=== PATIENT | female | born 1935 | race Caucasian/White ===

== ENCOUNTER → 2017-10-16 | Outpatient (CLI) | payer MEDICARE, BC ==
[~2017-10-16] MED LIST: ACE3 PO; AMO250 PO; ASPI-715 PO; ATR10 PO; BACDS PO; BEN10 PO; BIMA2.5D5 OP; BRI10OD OP; CALC-475 PO; CHOL200038 PO; CPAP; DORZ10DR21 OP; EST3 PO; FLU IM; GLUC500T13 PO; HCTZ25 PO; HYDR-2966 PO; LEV125 PO; LEVO50TA80 PO; LUTE20CA11 PO; MAXI VISION; MECL-81 PO; METH1TAB58 PO; MIRA50TA PO; MIRT-22 PO; MULT-1 PO; OMEG-11 PO; ONDA8TAB98 PO; PHENA200 PO; POTA10CA61 PO; SIMV5TAB60 PO; VIT1CAPS38 PO; VITA1CAP46 PO; XALATAN
[2017-10-16 09:16] LABS: PLATELET COUNT, AUTOMATED 144 K/uL (150-450)
== END ==
LOC: LAB 08:28
PROVIDERS: ATTEND Nurse Practitioner Family
DX: E78.5 Hyperlipidemia, unspecified (principal); E03.9 Hypothyroidism, unspecified; I10 Essential (primary) hypertension
CPT/HCPCS: 36415; 82040; 82247; 82310; 82374; 82435; 82465; 82565; 82947; 83718; 84075; 84132; 84155; 84295; 84443; 84450; 84460; 84478; 84520; 85025

== ENCOUNTER → 2018-03-02 | Outpatient (CLI) | payer MEDICARE, BC ==
[~2018-03-02] MED LIST changes: -DORZ10DR21 OP; +DORZ10DR24 OP
[2018-03-02 08:40] LABS: PLATELET COUNT, AUTOMATED 162 K/uL (150-450)
== END ==
LOC: LAB 08:17
PROVIDERS: ATTEND Nurse Practitioner Family
DX: E03.9 Hypothyroidism, unspecified (principal); E78.5 Hyperlipidemia, unspecified; I10 Essential (primary) hypertension
CPT/HCPCS: 36415; 82040; 82247; 82310; 82374; 82435; 82465; 82565; 82947; 83718; 84075; 84132; 84155; 84295; 84443; 84450; 84460; 84478; 84520; 85025

== ENCOUNTER 2018-05-30 13:45 | Outpatient (RCR) | payer MEDICARE, BC ==
--- NOTE | 2018-03-21 18:41 | PT INITIAL EVALUATION ---
MEDICAL DIAGNOSIS: Age-related weakness TREATMENT DIAGNOSIS: R26.89 Imbalance, R53.1 Weakness, R 53.81 Physical Deconditioning DATE OF ONSET: 12/15/17 SUBJECTIVE: Rosy Lee presents to PT for weakness and worse imbalance over the last three months with being sedentary. She relates she is limited with ambulation, not completing a shopping trip, going out to eat due to weakness. She denies falls in the last three months. She'd like to be able to return to shopping a full shopping trip ([employer]), community ambulation, be more steady in ambulation and transfers. She also reports R spinning vertigo with laying on her R side in bed. She reports mild short term memory deficits. REHAB PROBLEM LIST: Decreased ROM Decreased Strength Decreased Endurance Decreased Balance Decreased Function Decreased Mobility Decreased Gait PREVIOUS MEDICAL HISTORY: L TKA, glaucoma, hypothyroidism, vertigo. OCCUPATION: Retired teacher OBJECTIVE: Posture: Heels 8" apart, valgus knees, upright trunk. ROM: Ankle PROM DF 0 deg. B. Strength: LE's 4-/5 except calves 2+/5. Special Tests: Positive R Hallpike for upbeating torsional nystagmus. Mobility: Sit to career services coordinator 1-3 attempts, pushes legs against chair or uses hands, 19" seat height, 1 attempt, no UE's 21" seat height. Gait: Tinetti Gait and Balance 14, a high fall risk. Rosy ambulates with a cane, fleet not passing each other, not clearing the floor, flat foot gait pattern. Gait speed is 1.7 feet per second, a household ambulator speed, O2 on room air after 170 feet is 86%, HR 87. She turns slowly with discordant steps and balance disturbance. Balance: Sy Balance Assessment 39, a high fall risk. Rosy's able to WS L and R but in turning is fearful and has balance disturbance. Double limb support only. Functional reach 5". ASSESSMENT: Rosy Lee presents with deconditioning, weakness, low O2 sats, high fall risk and altered balance from a 3 month sedentary life style. She's a good candidate to reduce fall risk, strengthen and condition for safer, farther community ambulation. Short Term Goals One month: Rosy shops in a small store with grocery cart, not electric cart. Two months: Rosy demonstrates stepping reflex with balance challenge, community ambulator with cane. Three months: Genia demonstrates corrective balance reactions on uneven and firm surfaces, low fall risk with community ambulation with cane. Patient's Goals Reduce fall risk, shop without an electric cart, have stronger legs for ambulation. PLAN: Patient to be seen for Strengthening/condition, Range of Motion, Stretching, Neuromuscular Re-ed, Gait Trg/Balance Trg, Home Exercise Program 2x/Week for 3 months Thank you for this referral. If you have any questions, comments, or concerns about this report or plan, please contact me at . [facility]
--- NOTE | 2018-04-25 17:09 | PT PLAN OF CARE ---
Physician: Emma Tabor AUTOMATIC CAR WASH ATTENDANT Patient is being seen: 2x/week Therapist: Jeny Bell PT Medical Diagnosis: Age-related weakness Treatment Diagnosis: R26.89 Imbalance, R53.1 Weakness, R 53.81 Physical Deconditioning Date of Onset: 12/15/17 Date of Initial Evaluation: 03/21/18 Date patient was last seen: 04/25/18 Number of treatments: 10 Number of cancellations/No shows: 0 INTERVENTIONS: Strengthening/condition Range of Motion Stretching Neuromuscular Re-ed Gait Trg/Balance Trg Home Exercise Program GOALS: One month: Rosy shops in a small store with grocery cart, not electric cart. met Two months: Rosy demonstrates stepping reflex with balance challenge (not met), community ambulator with cane (met). Three months: Genia demonstrates corrective balance reactions on uneven and firm surfaces (not met), low fall risk with community ambulation with cane (progressing). PATIENT'S GOAL: Reduce fall risk (progressing), shop without an electric cart (met), have stronger legs for ambulation (not met). Patient Compliance: Excellent Prognosis: Good Reasons for continuing therapy: S: Rosy denies falls since starting therapy. She reports she lacks motivation to get out and about. Posture: Heels 8" apart, valgus knees, upright trunk. ROM: Ankle PROM DF 10 deg. B. Strength: LE's still 4-/5 except calves 2+/5 (we've been working more balance). Gait/Balance: Tinetti Gait and Balance improved to 22 (was 14), a fall risk. Sy Balance Assessment improved from 39 to 40, a 29% impairment. Genia ambulates 3 minutes of the 6 minutes walk test with cane, O2 sat on room air 87 to 90% Mobility: Sit to machinist tool and die 1attempt, without leg against bed or hands. A/P: Rosy While is reducing fall risk, improving gait, still needs balance and strengthening to reduce fall risk further. if you agree, we'll continue per evaluation plan at 2x/week through May. Thank you. MARIBETH
[~2018-05-30 13:45] MED LIST changes: +AFLI2VIA IO; +BENA5TAB33 PO; +DOCU-416 PO; +LEVO50TA86 PO; +NEPA1.7D OP; +PRED5DRO3 OD; +SIMV10TA98 PO; +SOLI5TAB PO
--- NOTE | 2018-06-04 14:25 | PT PLAN OF CARE ---
Physician: Emma Tabor ENDLESS BED DRUM SANDER Patient is being seen: 2x/week Therapist: Jeny Bell, PT Medical Diagnosis: Age-related weakness Treatment Diagnosis: R26.89 Imbalance, R53.1 Weakness, R 53.81 Physical Deconditioning Date of Onset: 12/15/17 Date of Initial Evaluation: 03/21/18 Date patient was last seen: 05/30/18 Number of treatments: 18 Number of cancellations/No shows: 1 INTERVENTIONS: Strengthening/condition, Neuromuscular Re-ed, Gait Trg/Balance Trg, Home Exercise Program GOALS: One month: Rosy shops in a small store with grocery cart, not electric cart. met Two months: Rosy demonstrates stepping reflex with balance challenge (not met), community ambulator with cane (met). Three months: Genia demonstrates corrective balance reactions on uneven and firm surfaces (not met), low fall risk with community ambulation with cane (not met). PATIENT'S GOAL: Reduce fall risk (partially met), shop without an electric cart (met), have stronger legs for ambulation (partially met). Patient Compliance: Good Prognosis: Good Reasons for discontinuing therapy: S: Rosy cancelled today and requested discharge from PT. She's been flustered with her balance over the last few visits and her lack of motivation. Posture: Heels 8" apart, valgus knees, upright trunk. Mobility: Sit to office machine servicer 1 attempt, no hands. Balance: Tinetti Gait and Balance was 22, a fall risk at the last POC of 04/25/18. A/P: Rosy While has discharged herself from PT. I feel she has improved her balance. If she would like to return to PT, I would be happy to work with her. I'll close her PT case. Thank you. MARIBETH
== END 2018-06-03 18:00 | disposition home or self-care (01) ==
LOC: PT 13:45
PROVIDERS: ATTEND Nurse Practitioner Family
DX: R53.1 Weakness (principal); R53.81 Other malaise; R26.89 Other abnormalities of gait and mobility; R42 Dizziness and giddiness; R41.3 Other amnesia; E03.9 Hypothyroidism, unspecified; Z96.652 Presence of left artificial knee joint
CPT/HCPCS: 97162

== ENCOUNTER → 2018-06-21 | Outpatient (CLI) | payer MEDICARE, BC ==
[~2018-06-21] MED LIST changes: -BIMA2.5D5 OP; +BIMA2.5D5 OU; +LEVO75TA73 PO; +NEPA1.7D OD; -NEPA1.7D OP; +OXYGENHOME INH; +RANI-318 PO
[2018-06-21 13:51] LABS: PLATELET COUNT, AUTOMATED 164 K/uL (150-450)
== END ==
LOC: LAB 13:10
PROVIDERS: ATTEND Family Medicine
DX: R41.0 Disorientation, unspecified (principal); R53.83 Other fatigue; E55.9 Vitamin D deficiency, unspecified; R26.89 Other abnormalities of gait and mobility
CPT/HCPCS: 36415; 82306; 82310; 82374; 82435; 82565; 82607; 82947; 84132; 84295; 84443; 84520; 85025

== ENCOUNTER → 2018-06-26 | Outpatient (CLI) | payer MEDICARE, BC ==
--- NOTE | 2018-06-26 11:25 | RADIOLOGY IMAGING REPORT ---
FACILITY: [facility] PATIENT NAME: Rosy Lee : 1935 MR: [id number] V: [id number] EXAM DATE: ORDERING PHYSICIAN: GRADY TEJADA TECHNOLOGIST: Location: [facility] Patient: Rosy Lee : 1935 Visit/Account:[id number] Date of Sevice: 06/26/2018 Study: MRI brain without the use of intravenous contrast Indication: Confusion, fatigue, imbalance, dizziness Comparison study: None Technique: Multiplanar MRI sequences were obtained through the brain without the use of intravenous g adolinium contrast. The examination demonstrates no evidence of acute intracranial hemorrhage. There is no evidence of ex tra-axial collection or hydrocephalus. A diffusion-weighted sequence was performed and demonstrates no evidence of active ischemia. There is no evidence of active infarction. There is moderate atrophy present. There are patchy areas of high T2-weighted signal present within the central white matter. This is most consistent with chronic ischemia. These findings are likely within normal limits of normal for a patient of 83 years of age. The orbits are grossly unremarkable. There is no significant abnormality of the paranasal sinuses present. IMPRESSION: No acute intracranial abnormality identified. There is moderate atrophy noted. There ou r chronic ischemic white matter changes present. Report Dictated By: Darrick Elizalde at 06/26/2018 11:18 AM Report E-Signed By: Darrick Elizalde at 06/26/2018 11:21 AM WSN:[id number]
== END ==
LOC: MRI 00:37
PROVIDERS: ATTEND Family Medicine
DX: G31.9 Degenerative disease of nervous system, unspecified (principal); R41.0 Disorientation, unspecified; R53.83 Other fatigue; R26.89 Other abnormalities of gait and mobility; R42 Dizziness and giddiness
CPT/HCPCS: 70551

== ENCOUNTER → 2018-09-04 | Outpatient (CLI) | payer MEDICARE, BC ==
[~2018-09-04] MED LIST changes: +LEVO25TA61 PO; -SIMV5TAB60 PO; +SIMV5TAB69 PO
== END ==
LOC: ZZSPRING 01:17
PROVIDERS: ATTEND Family Medicine
DX: Z01.89 Encounter for other specified special examinations (principal)
CPT/HCPCS: 36415; 82310; 82374; 82435; 82565; 82947; 84132; 84295; 84443; 84520

== ENCOUNTER → 2018-10-16 | Outpatient (CLI) | payer MEDICARE, BC ==
[~2018-10-16] MED LIST changes: +ACET-1966 PO; +ASPI-757 PO; +CALC1TAB24 PO; +ESCI10TA8 PO; +PEG15DRO5 OP
== END ==
LOC: ZZSPRING 02:03
PROVIDERS: ATTEND Family Medicine
DX: E03.9 Hypothyroidism, unspecified (principal)
CPT/HCPCS: 36415; 84443

== ENCOUNTER 2018-11-01 18:48 | Emergency (ER) | payer MEDICARE, BC ==
--- NOTE | 2018-11-01 18:31 | ER Report ---
History and Physical Time Seen By MD: 18:57 HPI/ROS CHIEF COMPLAINT: Fall HISTORY OF PRESENT ILLNESS: This in the 3-year-old female who presents to the emergency department via EMS for a fall. Patient states that she was using her walker this evening, and walker began to accelerate, she slipped and fell down landing on her left cheek, was unable to get up, was on the floor for 30 minutes to an hour. Patient arrives alert and oriented, interacting well, acting appropriate. She does have a contusion and a small abrasion to the right orbit, she is also complaining of a small amount of pain to her right knee where she states the pain is very mild, no difficulties with flexion or extension. She did have 3 episodes of vomiting prior to arrival. She has no nausea at this time. She is not currently taking anticoagulation. She denies chest pain or shortness of breath. Denies C-spine tenderness. REVIEW OF SYSTEMS: Constitutional: No fever, no chills. Eyes: No discharge. ENT: No sore throat. Cardiovascular: No chest pain, no palpitations. Respiratory: No cough, no shortness of breath. Gastrointestinal: As above. Genitourinary: No hematuria. Musculoskeletal: As above. Skin: As above. Neurological: No headache. Allergies: Coded Allergies: codeine (Unverified Allergy, Intermediate, NAUSEA/VOMITING, 11/01/18) fluoxetine (Unverified Allergy, Intermediate, SHAKING, 11/01/18) SHAKING Iodinated Contrast- Oral and IV Dye (Verified Allergy, Mild, 11/01/18) Uncoded Allergies: NARCOTICS (Allergy, Mild, 03/23/09) Home Meds Active Scripts Levothyroxine Sodium (LEVOTHYROXINE SODIUM) 25 Mcg Tablet, 1 TAB PO QDAY for 90 Days, #90 TAB 4 Refills Prov:GRADY TEJADA MD 10/16/18 Escitalopram Oxalate (ESCITALOPRAM OXALATE) 10 Mg Tablet, 1 TAB PO QDAY for 90 Days, #90 TAB Prov:GRADY TEJADA MD 09/11/18 Reported Medications Fesoterodine Fumarate (TOVIAZ) 4 Mg Tabsr, 4 MG PO QDAY 11/01/18 Dorzolamide HCl/Pf (Dorzolamide 2% Eye Drop) 2 % Drops, 1 DROP OU TID 11/01/18 Calcium Carbonate/Mag Hydrox (ANTACID CHEWABLE TABLET) 1 Each Tab.chew, 2 TAB.CHEW PO Q2H PRN for PRN, TAB.CHEW 09/18/18 Aspirin (ASPIRIN) 325 Mg Tablet, 1 TAB PO ONCE PRN for CHEST PAIN, TAB 09/18/18 Acetaminophen (TYLENOL) 325 Mg Tablet, 1-2 TAB PO Q4H PRN for PAIN OR FEVER 100 OR GREATER, TAB 09/18/18 Oxygen (OXYGEN) Inha, 2 L INH, L C-PAP 8cm H2O pressure, plus oxygen 2L, heated and humidified. [facility] Home Oxygen 06/21/18 Aflibercept (EYLEA) Unknown Strength Vial, IO [id number] 05/11/18 Simvastatin (SIMVASTATIN) 10 Mg Tablet, 1 TAB PO HS 05/11/18 Vit C/Dl-E Ac/Lut/Copper/Znox (Preservision Softgel) 1 Cap Capsule, 1 CAP PO QDAY 06/14/11 Discontinued Reported Medications Peg 400/Hypromellose/Glycerin (EYE DROP TEARS) 15 Ml Drops, 1 GTT OP PRN 09/18/18 Multivitamins W-Minerals/Lut (Centrum Silver Tablet) 1 Tab Tablet, 1 TAB PO QDAY 06/14/11 Past Medical/Surgical History The patient has a past medical and surgical history of hypertension, hypercholesterolemia, GERD, arthritis, left ankle fracture, wears glasses, hypothyroidism, depression, left breast cancer, radiation, hysterectomy, toe surgery, injections into her right eye for macular degeneration, right breast cyst removal. Reviewed Nurses Notes: Yes Hx Smoking: No Smoking Status: Never Smoker Hx Alcohol Use: No Constitutional Vital Sign - Last 24 Hours 11/01/18 11/01/18 11/01/18 11/01/18 18:58 19:03 19:18 19:23 Temp 98.6 Pulse 65 67 61 61 Resp 20 B/P (MAP) 146/90 Pulse Ox 92 91 97 95 O2 Delivery Room Air 11/01/18 11/01/18 11/01/18 11/01/18 19:53 20:00 20:08 20:23 Pulse 58 59 57 B/P (MAP) 159/72 (101) Pulse Ox 90 87 79 11/01/18 20:27 O2 Flow Rate 2.0 Physical Exam General Appearance: The patient is alert, has no immediate need for airway protection and no signs of toxicity. Eyes: Pupils equal and round no pallor or injection. EOMs intact. ENT, Mouth: Mucous membranes are moist. Respiratory: There are no retractions, lungs are clear to auscultation. Cardiovascular: Regular rate and rhythm. Gastrointestinal: Abdomen is soft and non tender, no masses, bowel sounds normal. Neurological: Alert and oriented 4. Moving all extremities. Following all commands. No focal neuro deficits. Skin: Contusion and hematoma to the right orbit, small amount of oozing blood, small abrasion to the lateral canthus, unrepairable. Musculoskeletal: Neck is supple non tender. Tenderness to the right orbit, no crepitus or obvious deformities. No depressions. Extremities are nontender, nonswollen and have full range of motion. DIFFERENTIAL DIAGNOSIS: After history and physical exam differential diagnosis was considered for intracranial bleed, cervical fracture, contusion, hematoma, basilar skull fracture, rhabdomyolysis. Medical Decision Making Data Points Result Diagram: 11/01/18 1850 11/01/18 1850 Laboratory Hematology Test 11/01/18 18:50 Red Blood Count 4.43 M/uL (4.17-5.56) Mean Corpuscular Volume 86.7 fL (80.0-96.0) Mean Corpuscular Hemoglobin 29.1 pg (26.0-33.0) Mean Corpuscular Hemoglobin Concent 33.6 g/dL (32.0-36.0) Red Cell Distribution Width 14.2 % (11.5-14.5) Mean Platelet Volume 10.3 fL (7.2-11.1) Neutrophils (%) (Auto) 63.3 % (39.4-72.5) Lymphocytes (%) (Auto) 21.8 % (17.6-49.6) Monocytes (%) (Auto) 10.4 % (4.1-12.4) Eosinophils (%) (Auto) 3.3 % (0.4-6.7) Basophils (%) (Auto) 1.2 % (0.3-1.4) Nucleated RBC Relative Count (auto) 0.0 /100WBC Neutrophils # (Auto) 3.7 K/uL (2.0-7.4) Lymphocytes # (Auto) 1.3 K/uL (1.3-3.6) Monocytes # (Auto) 0.6 K/uL (0.3-1.0) Eosinophils # (Auto) 0.2 K/uL (0.0-0.5) Basophils # (Auto) 0.1 K/uL (0.0-0.1) Nucleated RBC Absolute Count (auto) 0.00 K/uL Prothrombin Time 12.9 seconds (12.0-14.4) Prothromb Time International Ratio 0.98 Activated Partial Thromboplast Time 33 seconds (23-35) Sodium Level 139 mmol/L (137-145) Potassium Level 3.8 mmol/L (3.5-5.0) Chloride Level 106 mmol/L (98-107) Carbon Dioxide Level 26 mmol/L (22-31) Blood Urea Nitrogen 22 mg/dl (7-18) Creatinine 1.10 mg/dl (0.52-1.04) Glomerular Filtration Rate Calc 47.2 Random Glucose 92 mg/dl (75-110) Calcium Level 9.1 mg/dl (8.4-10.2) Total Creatine Kinase < 20 U/L (30-135) Creatine Kinase MB U/L Chemistry Test 11/01/18 18:50 White Blood Count 5.9 k/uL (4.5-11.0) Red Blood Count 4.43 M/uL (4.17-5.56) Hemoglobin 12.9 g/dL (12.0-16.0) Hematocrit 38.4 % (34.0-47.0) Mean Corpuscular Volume 86.7 fL (80.0-96.0) Mean Corpuscular Hemoglobin 29.1 pg (26.0-33.0) Mean Corpuscular Hemoglobin Concent 33.6 g/dL (32.0-36.0) Red Cell Distribution Width 14.2 % (11.5-14.5) Platelet Count 136 K/uL (150-450) Mean Platelet Volume 10.3 fL (7.2-11.1) Neutrophils (%) (Auto) 63.3 % (39.4-72.5) Lymphocytes (%) (Auto) 21.8 % (17.6-49.6) Monocytes (%) (Auto) 10.4 % (4.1-12.4) Eosinophils (%) (Auto) 3.3 % (0.4-6.7) Basophils (%) (Auto) 1.2 % (0.3-1.4) Nucleated RBC Relative Count (auto) 0.0 /100WBC Neutrophils # (Auto) 3.7 K/uL (2.0-7.4) Lymphocytes # (Auto) 1.3 K/uL (1.3-3.6) Monocytes # (Auto) 0.6 K/uL (0.3-1.0) Eosinophils # (Auto) 0.2 K/uL (0.0-0.5) Basophils # (Auto) 0.1 K/uL (0.0-0.1) Nucleated RBC Absolute Count (auto) 0.00 K/uL Prothrombin Time 12.9 seconds (12.0-14.4) Prothromb Time International Ratio 0.98 Activated Partial Thromboplast Time 33 seconds (23-35) Glomerular Filtration Rate Calc 47.2 Calcium Level 9.1 mg/dl (8.4-10.2) Total Creatine Kinase < 20 U/L (30-135) Creatine Kinase MB U/L Coagulation Test 11/01/18 18:50 Prothrombin Time 12.9 seconds Prothromb Time International Ratio 0.98 Activated Partial Thromboplast Time 33 seconds EKG/Imaging Imaging PATIENT NAME: Rosy Lee : 1935 MR: [id number] V: [id number] EXAM DATE: [id number] ORDERING PHYSICIAN: LAVINIA SIMONS TECHNOLOGIST: Location: [facility] Patient: Rosy Lee : 1935 Visit/Account:[id number] Date of Sevice: 11/01/[address] scan without contrast COMPARISONS: Head CT scan without contrast dated March 21, 2016 ADDITIONAL PERTINENT HISTORY: Fall with head injury TECHNIQUE: Multiple axial images were obtained from the skull base to the vertex without IV contrast. One of the following dose optimization techniques was utilized in the performance of this exam: Automated exposure control; adjustment of the mA and/or kV according to the patient's size; or use of an iterative reconstruction technique. Specific details can be referenced in the facility's radiology CT exam operational policy. FINDINGS: Midline shift: Negative Ventricles: Moderate enlargement of the lateral and third ventricles. This is stable from previous exam. Brain parenchyma: Patchy hypoattenuation within the periventricular and subcortical white matter, nonspecific but likely representing small vessel ischemic change on a chronic basis. No intraparenchymal hemorrhage or mass effect. Extra-axial spaces: Moderate cerebral atrophy. Intracranial vasculature: Cavernous internal carotid and distal vertebral artery calcifications. Otherwise negative Osseous structures: Negative Paranasal sinuses and mastoid air cells: Mild mucosal thickening involving both maxillary sinuses. Otherwise negative Surrounding soft tissues and orbits: Mild right periorbital soft tissue hematoma. IMPRESSION: 1. Age related changes as scattered above. 2. Right periorbital soft tissue hematoma. 3. No evidence of acute intracranial traumatic injury. Report Dictated By: Jordan Sue MD at 11/01/2018 8:13 PM Report E-Signed By: Jordan Sue MD at 11/01/2018 8:17 PM WSN:[facility] Location: [facility] Patient: Rosy Lee : 1935 Visit/Account:[id number] Date of Sevice: 11/01/2018 CT face without contrast Comparison: None Additional pertinent history: Fall with facial lacerations. TECHNIQUE: Multiple axial images were obtained through the facial bones without IV contrast. Coronal and sagittal reformatted images were obtained off the axial source data. One of the following dose optimization techniques was utilized in the performance of this exam: Automated exposure control; adjustment of the mA and/or kV according to the patient's size; or use of an iterative r econstruction technique. Specific details can be referenced in the facility's radiology CT exam operational policy. FINDINGS: Zygomas/zygomatic arches:Negative Hope of the orbits: Negative Orbital floors: Negative Hope of the paranasal sinuses: Negative Pterygoid plates: Negative Nasal bones/nasal septum: Negative Maxilla: Negative Mandible: Negative Orbits: Negative Paranasal sinuses: Mild mucosal thickening involving the right maxillary sinus. Surrounding soft tissues: Right periorbital soft tissue hematoma. Otherwise negative IMPRESSION: 1. Right periorbital soft tissue hematoma. 2. No acute bony abnormality. Report Dictated By: Jordan Sue MD at 11/01/2018 8:20 PM Report E-Signed By: Jordan Sue MD at 11/01/2018 8:23 PM WSN:[facility] Location: [facility] Patient: Rosy Lee : 1935 Visit/Account:[id number] Date of : 11/01/2018 CT VERTEBRA CERVICAL (NON CON) COMPARISONS: None. ADDITIONAL PERTINENT HISTORY: Fall with head injury and facial lacerations. TECHNIQUE: Multiple axial images were obtained from the skull base through the upper thoracic spine with coronal and sagittal reformatted images obtained without IV contrast. One of the following dose optimization techniques was utilized in the performance of this exam: Automated exposure control; adjustment of the mA and/or kV according to the patient's size; or use of an iterative reconstruction technique. Specific details can be referenced in the facility's radiology CT exam operational policy. FINDINGS. Vertebral body heights and alignment: Mild retrolisthesis of C5 on C6. Vertebral bodies: Anteriorly and posteriorly directed osteophytes at multiple levels.. No bony fractures. Disc spaces: Disc space narrowing involving the lower cervical spine. Cranial cervical junction: Negative. Cervical thoracic junction: Negative. Surrounding soft tissues: Negative. Lung apices: Negative. IMPRESSION: 1. Spondylitic change involving the cervical spine. 2. No acute appearing bony abnormalities. Report Dictated By: Jordan Sue MD at 11/01/2018 8:17 PM Report E-Signed By: Jordan Sue MD at 11/01/2018 8:20 PM WSN:[facility] ED Course/Re-evaluation Clinical Indication for ER IV: IV Access ED Course The patient was admitted to a room. Extremities physical were obtained. Differential diagnoses were considered. An IV was started. A CBC, BMP, CPK were obtained, a UA was collected. Patient states her tetanus is up-to-date. A CT of the head and neck negative for age cranial bleed or cervical injury. Negative facial bone CT. The wound to the right lateral canthus is unremarkable, an abrasion, wound was cleansed. Patient has been having some lightheadedness and dizziness secondary to her vertigo, given 2.5 mg meclizine. Patient's son remained at the bedside, he is giving the patient a ride back to [facility] [employer] [place]. The patient had no other questions or concerns at the time of discharge, patient was doing well at the time of discharge. Decision to Disposition Date: Nov 01, 2018 Decision to Disposition Time: 20:41 Depart Departure Latest Vital Signs Vital Signs Date Time Temp Pulse Resp B/P (MAP) Pulse Ox O2 Delivery O2 Flow Rate FiO2 11/01/18 20:27 2.0 11/01/18 20:23 57 79 11/01/18 20:00 159/72 (101) 11/01/18 18:58 98.6 20 Room Air Impression: Primary Impression: Fall Additional Impressions: Contusion of right orbit Abrasion Condition: Improved Disposition: HOME OR SELF-CARE Referrals: GRADY TEJADA MD (PCP) Patient Instructions: Abrasion,Face, Acute Wound Care (ED), Contusion in Adults (ED), Fall Prevention for Older Adults (ED) Additional Instructions: There were no concerning findings on the CT of the head, neck or face. You can take Tylenol as needed for pain. Please follow-up with Dr. Tejada, as scheduled. Drink plenty of water. Get plenty of rest. Please be careful while ambulating with your walker. Return to the emergency department for any other concerns or worsening symptoms. Problem Qualifiers Primary Impression: Fall Encounter type: initial encounter Qualified Codes: W19.XXXA - Unspecified fall, initial encounter Additional Impressions: Contusion of right orbit Encounter type: initial encounter Qualified Codes: S05.11XA - Contusion of eyeball and orbital tissues, right eye, initial encounter LAVINIA SIMONSP-BC Nov 01, 2018 18:31
[~2018-11-01 18:48] MED LIST changes: -DORZ10DR8 OU; -FES4PT PO
[2018-11-01] MEDS ORDERED: ONDANSETRON 4 MG/2 ML VIAL IVP ONE (19:20)
[2018-11-01 19:29] LABS: PLATELET COUNT, AUTOMATED 136 K/uL (150-450)
[2018-11-01] MEDS ORDERED: DORZ10DR8 OU (19:38)
[2018-11-01] MEDS ORDERED: FES4PT PO (19:47)
[2018-11-01 19:52] LABS: INR 0.98
--- NOTE | 2018-11-01 20:20 | RADIOLOGY IMAGING REPORT ---
FACILITY: [facility] PATIENT NAME: Rosy Lee : 1935 MR: [id number] V: [id number] EXAM DATE: ORDERING PHYSICIAN: LAVINIA SIMONS TECHNOLOGIST: Location: [facility] - [place] Patient: Rosy Lee : 1935 Visit/Account:[id number] Date of Sevice: 11/01/[address] scan without contrast COMPARISONS: Head CT scan without contrast dated March 21, 2016 ADDITIONAL PERTINENT HISTORY: Fall with head injury TECHNIQUE: Multiple axial images were obtained from the skull base to the vertex without IV contrast . One of the following dose optimization techniques was utilized in the performance of this exam: Aut omated exposure control; adjustment of the mA and/or kV according to the patient's size; or use of an iterative reconstruction technique. Specific details can be referenced in the facility's radiology CT exam operational policy. FINDINGS: Midline shift: Negative Ventricles: Moderate enlargement of the lateral and third ventricles. This is stable from previous exam. Brain parenchyma: Patchy hypoattenuation within the periventricular and subcortical white matter, no nspecific but likely representing small vessel ischemic change on a chronic basis. No intraparenchym al hemorrhage or mass effect. Extra-axial spaces: Moderate cerebral atrophy. Intracranial vasculature: Cavernous internal carotid and distal vertebral artery calcifications. Ot herwise negative Osseous structures: Negative Paranasal sinuses and mastoid air cells: Mild mucosal thickening involving both maxillary sinuses. Otherwise negative Surrounding soft tissues and orbits: Mild right periorbital soft tissue hematoma. IMPRESSION: 1. Age related changes as scattered above. 2. Right periorbital soft tissue hematoma. 3. No evidence of acute intracranial traumatic injury. Report Dictated By: Jordan Sue MD at 11/01/2018 8:13 PM Report E-Signed By: Jordan Sue MD at 11/01/2018 8:17 PM WSN:[email or web address]
--- NOTE | 2018-11-01 20:24 | RADIOLOGY IMAGING REPORT ---
FACILITY: [facility] PATIENT NAME: Rosy Lee : 1935 MR: [id number] V: [id number] EXAM DATE: ORDERING PHYSICIAN: LAVINIA SIMONS TECHNOLOGIST: Location: [facility] - [place] Patient: Rosy Lee : 1935 Visit/Account:[id number] Date of Sevice: 11/01/2018 CT VERTEBRA CERVICAL (NON CON) COMPARISONS: None. ADDITIONAL PERTINENT HISTORY: Fall with head injury and facial lacerations. TECHNIQUE: Multiple axial images were obtained from the skull base through the upper thoracic spine with coronal and sagittal reformatted images obtained without IV contrast. One of the following dose optimization techniques was utilized in the performance of this exam: Automated exposure control; adj ustment of the mA and/or kV according to the patient's size; or use of an iterative reconstruction t echnique. Specific details can be referenced in the facility's radiology CT exam operational policy. FINDINGS. Vertebral body heights and alignment: Mild retrolisthesis of C5 on C6. Vertebral bodies: Anteriorly and posteriorly directed osteophytes at multiple levels.. No bony fract ures. Disc spaces: Disc space narrowing involving the lower cervical spine. Cranial cervical junction: Negative. Cervical thoracic junction: Negative. Surrounding soft tissues: Negative. Lung apices: Negative. IMPRESSION: 1. Spondylitic change involving the cervical spine. 2. No acute appearing bony abnormalities. Report Dictated By: Jordan Sue MD at 11/01/2018 8:17 PM Report E-Signed By: Jordan Sue MD at 11/01/2018 8:20 PM WSN:[email or web address]
--- NOTE | 2018-11-01 20:27 | RADIOLOGY IMAGING REPORT ---
FACILITY: [facility] PATIENT NAME: Rosy Lee : 1935 MR: [id number] V: [id number] EXAM DATE: ORDERING PHYSICIAN: LAVINIA SIMONS TECHNOLOGIST: Location: [facility] - [place] Patient: Rosy Lee : 1935 Visit/Account:[id number] Date of Sevice: 11/01/2018 CT face without contrast Comparison: None Additional pertinent history: Fall with facial lacerations. TECHNIQUE: Multiple axial images were obtained through the facial bones without IV contrast. Nunez l and sagittal reformatted images were obtained off the axial source data. One of the following dose optimization techniques was utilized in the performance of this exam: Automated exposure control; ad justment of the mA and/or kV according to the patient's size; or use of an iterative reconstruction technique. Specific details can be referenced in the facility's radiology CT exam operational policy . FINDINGS: Zygomas/zygomatic arches:Negative Hope of the orbits: Negative Orbital floors: Negative Hope of the paranasal sinuses: Negative Pterygoid plates: Negative Nasal bones/nasal septum: Negative Maxilla: Negative Mandible: Negative Orbits: Negative Paranasal sinuses: Mild mucosal thickening involving the right maxillary sinus. Surrounding soft tissues: Right periorbital soft tissue hematoma. Otherwise negative IMPRESSION: 1. Right periorbital soft tissue hematoma. 2. No acute bony abnormality. Report Dictated By: Jordan Sue MD at 11/01/2018 8:20 PM Report E-Signed By: Jordan Sue MD at 11/01/2018 8:23 PM WSN:[email or web address]
[2018-11-01 20:30] VITALS: BP 148/74
[2018-11-01] MEDS ORDERED: MECLIZINE HCL 12.5 MG TAB PO ONE (20:55)
== END 2018-11-01 21:31 | disposition home or self-care (01) ==
LOC: ER 18:57
DX: S05.11XA Contusion of eyeball and orbital tissues, right eye, initial encounter (principal); S00.211A Abrasion of right eyelid and periocular area, initial encounter; W18.30XA Fall on same level, unspecified, initial encounter
CPT/HCPCS: 70450; 70486; 72125; 82550; 85025; 85610; 85730; 96374; 99284; J2405; J8597; 82310; 82374; 82435; 82565; 82947; 84132; 84295; 84520

== ENCOUNTER → 2018-11-01 | Outpatient (CLI) | payer MEDICARE, BC ==
[~2018-11-01] MED LIST changes: +DORZ10DR8 OU; +FES4PT PO
== END ==
LOC: AMB 18:23
PROVIDERS: ATTEND Nurse Practitioner
DX: R51 Headache (principal); R11.2 Nausea with vomiting, unspecified; S01.111A Laceration without foreign body of right eyelid and periocular area, initial encounter; R42 Dizziness and giddiness; W01.10XA Fall on same level from slipping, tripping and stumbling with subsequent striking against unspecified object, initial encounter
CPT/HCPCS: A0425; A0427

== ENCOUNTER → 2018-12-04 | Outpatient (CLI) | payer MEDICARE, BC ==
[~2018-12-04] MED LIST changes: +DORZ10DR8 OU; +FES4PT PO
== END ==
LOC: ZZSPRING 08:00
PROVIDERS: ATTEND Family Medicine
DX: R53.1 Weakness (principal)
CPT/HCPCS: 36415; 82040; 82247; 82310; 82374; 82435; 82565; 82947; 84075; 84132; 84155; 84295; 84443; 84450; 84460; 84520; 85027

== ENCOUNTER → 2019-03-05 | Outpatient (CLI) | payer MEDICARE, BC ==
[~2019-03-05] MED LIST changes: +DICL100G39 TOP; +NYST15CR32 TP
== END ==
LOC: ZZSPRING 02:36
PROVIDERS: ATTEND Family Medicine
DX: E03.9 Hypothyroidism, unspecified (principal); R53.83 Other fatigue
CPT/HCPCS: 36415; 82040; 82247; 82310; 82374; 82435; 82565; 82947; 84075; 84132; 84155; 84295; 84443; 84450; 84460; 84520; 85027